=== PATIENT | female | born 1945 | race Caucasian/White ===

== ENCOUNTER 2016-08-06 15:00 | Emergency (ER) | payer MEDICARE ==
[~2016-08-06 15:00] MED LIST: CARAFATE1 G/10 ML PO; EFFEXOR50 MG PO; IBUPROFEN800 MG; IBUPROFEN800 MG PO; K-DUR20 MEQ PO; PEPCID20 MG PO; PERPHENAZINE2 MG PO; PROAIR HFA8.5 GM PO; PROTONIX40 MG PO; SINEQUAN25 MG PO; ZANAFLEX4 MG PO
== END 2016-08-06 23:30 | disposition home or self-care (01) ==
LOC: D.ER 15:00
DX: S09.90XA Unspecified injury of head, initial encounter (principal); W01.0XXA Fall on same level from slipping, tripping and stumbling without subsequent striking against object, initial encounter; Y93.89 Activity, other specified; Y92.019 Unspecified place in single-family (private) house as the place of occurrence of the external cause; M54.2 Cervicalgia